=== PATIENT | female | born 1950 | race Caucasian/White ===

== ENCOUNTER 2017-04-09 14:58 | Inpatient (IN) | payer BC, MEDICARE ==
[~2017-04-09] VITALS: Ht 168.9 cm; Wt 94.9 kg
[2017-04-10] MEDS ORDERED: ALBUAER3 INH (09:17)
[2017-04-10] MEDS ORDERED: ESTR.3 PO (09:17)
[2017-04-10] MEDS ORDERED: LISI20TA3 PO (09:17)
[2017-04-10] MEDS ORDERED: AMBI10TA PO (09:17)
[2017-04-17] VITALS (9 sets, daily range): BP systolic 117–144; BP diastolic 69–83; PULSE 80–97; RESP 16–18; TEMP 97.5–98.5; O2SAT 97–98
[2017-04-17] MEDS ORDERED: PHENYLEPH/NS 1000 MCG/10 ML SYR IV ONE (12:00)
[2017-04-17] MEDS ORDERED: LACTATED RINGER'S 1000 ML INJ 2,000 ML IV ONE (12:00)
[2017-04-17] MEDS ORDERED: VECURONIUM BROMIDE 10 MG VIAL IV ONE (12:00)
[2017-04-17] MEDS ORDERED: PROPOFOL 200 MG/20 ML AMP IV ONE (12:00)
[2017-04-17] MEDS ORDERED: ONDANSETRON HCL 4 MG/2 ML VIAL IV PUSH ONE (12:00)
[2017-04-17] MEDS ORDERED: INSULIN HUMAN REGULAR 1,000 UNITS/10 ML VIAL SQ PRN (13:00)
[2017-04-17] MEDS ORDERED: METOPROLOL TARTRATE 25 MG TAB PO PRN (13:00)
[2017-04-17] MEDS ORDERED: LACTATED RINGER'S 1000 ML IV PRN (13:00)
[2017-04-17] MEDS ORDERED: SODIUM CHLORID 0.9% 500 ML IV PRN (13:00)
[2017-04-17] MEDS ORDERED: CHLORHEXIDINE GLUCONATE 2 % 1 PACK (2 CLOTHS) TOPICAL PRN (13:00)
[2017-04-17] MEDS ORDERED: POVIDONE IODINE 5% (ANTISEPSIS KIT) 4 APPLICATIONS EACH NARE PRN (13:00)
[2017-04-17] MEDS ORDERED: DEXT 5%-NACL 0.9% 1000 ML INJ 1,000 ML IV SCH (13:15)
[2017-04-17] MEDS ORDERED: METRONIDAZOLE 500 MG/100 ML ISONTONIC SOLN IV SCH (13:15)
[2017-04-17] MEDS ORDERED: ALVIMOPAN 12 MG CAPSULE - On Call PO SCH (13:30)
[2017-04-17] MEDS ORDERED: BUPIVACAINE HCL PF 0.5% 30 ML VIAL ONE (13:30)
[2017-04-17] MEDS: ALVIMOPAN 12 MG CAPSULE - Post-op dosing PO SCH (13:49)
[2017-04-17] MEDS: ceFAZolin 1,000 MG/NS 100 ML IV SCH ×4 (14:00→15:26)
[2017-04-17] MEDS ORDERED: MIDAZOLAM HCL 2 MG/2 ML VIAL ONE (14:48)
[2017-04-17] MEDS ORDERED: DEXAMETHASONE SOD PHOS 4 MG/ML VIAL ONE (14:48)
[2017-04-17] MEDS ORDERED: FAMOTIDINE 20 MG/2 ML VIAL ONE (14:48)
[2017-04-17] MEDS ORDERED: SUGAMMADEX SODIUM 200 MG/2 ML VIAL IV PUSH ONE ×2 (15:36)
[2017-04-17] MEDS ORDERED: ACETAMINOPHEN 1000 MG/100 ML VIAL IV ONE (15:37)
[2017-04-17] MEDS ORDERED: HYDROmorphone HCL PF 2 MG/ML VIAL ONE (15:37)
--- NOTE | 2017-04-17 15:38 | PD.OP ---
Operative Report Date of Surgery: Apr 17, 2017 Preoperative Diagnosis: Diverticulitis Postoperative Diagnosis: Same Procedure: Cystoscopy with bilateral ureteral catheter placement Anesthesia: VALENCIA Surgeon: Ajay Reyes Coater Slate(s): None Resident Surgeon: None Operation and Findings: 66-year-old female with history of diverticular disease elected to undergo colectomy by Dr. Bonds. Question right for bilateral ureteral catheter placement. Risk and benefits were discussed preoperatively and she was willing to proceed. The patient is brought to the operating room identify myself as Ramona Madison. She is placed in dorsal lithotomy position, prepped and draped in usual sterile fashion, received preprocedure antibiotics, general endotracheal tube anesthesia was administered. 22 Greek scope was inserted in the bladder chilel cystoscopy did not reveal any abnormalities. Left ureteral orifice was identified and a 5 Greek open catheter was inserted in the left ureteral orifice without difficulty. This was repeated on the right side without difficulty. 16 Greek Arnold was then inserted without difficulty and the catheter attached to the Arnold. She tolerated procedure well. Ajay Reyes DO Apr 17, 2017 15:38
[2017-04-17] MEDS: D5-LR + KCL 20 MEQ INJ 1,000 ML IV SCH ×3 (17:27→21:46)
[2017-04-17] MEDS ORDERED: NALOXONE HCL 0.4 MG/ML AMP IV PRN (17:30)
[2017-04-17] MEDS ORDERED: ACETAMINOPHEN 325 MG TAB PO PRN (17:30)
[2017-04-17] MEDS ORDERED: POTASSIUM CHLOR 40 MEQ PREMIX 100 ML IV PRN (17:30)
[2017-04-17] MEDS ORDERED: ENALAPRILAT 1.25 MG/ML VIAL IV PRN (17:30)
[2017-04-17] MEDS ORDERED: ACETAMINOPHEN/HYDROcodone 325 MG/5 MG TAB PO PRN (17:30)
[2017-04-17] MEDS ORDERED: POTASSIUM CHLOR 20 MEQ PREMIX 100 ML IV PRN (17:30)
[2017-04-17] MEDS ORDERED: Post-op Orders (for Pharmacy) MISC XX ONE (17:30)
[2017-04-17] MEDS ORDERED: BENZOCAINE 6 MG/MENTHOL 10 MG LOZENGE BUCCAL PRN (17:30)
[2017-04-17] MEDS ORDERED: SODIUM CHLORIDE 0.9% FLUSH 10 ML FLUSH IV FLUSH PRN (17:30)
[2017-04-17] MEDS ORDERED: *MEPERIDINE 25 MG INJ VIAL PERIprocedural Use ONLY ONE (17:45)
[2017-04-17] MEDS ORDERED: fentaNYL CITRATE 250 MCG/5 ML AMP ONE (17:51)
[2017-04-17] MEDS ORDERED: *morphine SULFATE 8 MG/ML PERIprocedure ONLY ONE ×2 (17:52→18:06)
[2017-04-17 18:13] LABS: AUTOMATED NEUTROPHIL # 12.8 TH/MM3 (1.8-7.7); BASOPHIL % 0.3 % (0.0-2.0); HEMATOCRIT 33.8 % (35.0-46.0); HEMO FLAGS DIFF FINAL; LYMPHOCYTE # 1.4 TH/MM3 (1.0-4.8); MEAN CELL VOLUME 88.6 FL (80.0-100.0); MEAN CORPUSCULAR HEMOGLOBIN 29.2 PG (27.0-34.0); MONO % 1.1 % (0.0-8.0); NEUT % 88.6 % (16.0-70.0); PLATELET COUNT 323 TH/MM3 (150-450); RED BLOOD COUNT 3.82 MIL/MM3 (4.00-5.30); RED CELL DISTRIBUTION WIDTH 12.6 % (11.6-17.2); WHITE BLOOD COUNT 14.4 TH/MM3 (4.0-11.0)
[2017-04-17] MEDS ORDERED: *HYDROmorphone PF 1 MG VIAL PERIprocedural Use ONLY ONE ×3 (18:17→18:43)
[2017-04-17] MEDS ORDERED: ALBUTEROL SULFATE 90 MCG/ACT HFA 18 GM INHALER INH PRN (18:30)
[2017-04-17 18:33] LABS: BICARBONATE 17.6 MEQ/L (21.0-32.0); POTASSIUM 3.8 MEQ/L (3.5-5.1)
[2017-04-17] MEDS: METOCLOPRAMIDE HCL 10 MG/2 ML VIAL IVS SCH ×2 (18:55→23:56)
[2017-04-17] MEDS ORDERED: DO NOT ADM ANY ANTICOAGULANT DRUGS PRN (19:00)
[2017-04-17] MEDS: MORPHINE SULFATE 30 MG/30 ML PCA IV SCH (19:01)
[2017-04-17] MEDS: SODIUM CHLORIDE 0.9% FLUSH 10 ML FLUSH IV FLUSH SCH (21:00)
[2017-04-17] MEDS: FUROSEMIDE 20 MG/2 ML VIAL IV SCH (21:42)
[2017-04-17] MEDS: metroNIDAZOLE 500 MG INJ 100 ML IV SCH (21:43)
[2017-04-17] MEDS: PCA - TOTAL MG MORPHINE DELIVERED PER SHIFT SCH (22:00)
[2017-04-17] MEDS: ceFAZolin 2 GM PREMIX 50 ML IV SCH (22:34)
[2017-04-18] VITALS (13 sets, daily range): BP systolic 111–131; BP diastolic 63–79; PULSE 76–90; RESP 16–18; TEMP 97.4–98.4; O2SAT 96–99
[2017-04-18] MEDS: ONDANSETRON HCL 4 MG/2 ML VIAL IV PRN (03:32)
[2017-04-18] MEDS: D5-LR + KCL 20 MEQ INJ 1,000 ML IV SCH ×3 (03:38→19:32)
[2017-04-18] MEDS: PCA - TOTAL MG MORPHINE DELIVERED PER SHIFT SCH ×3 (06:00→22:00)
[2017-04-18 06:01] LABS: AUTOMATED NEUTROPHIL # 8.9 TH/MM3 (1.8-7.7); BASOPHIL % 0.2 % (0.0-2.0); HEMATOCRIT 34.4 % (35.0-46.0); HEMO FLAGS DIFF FINAL; LYMPHOCYTE # 0.7 TH/MM3 (1.0-4.8); MEAN CORPUSCULAR HEMOGLOBIN 29.1 PG (27.0-34.0); MEAN CORPUSCULAR HGB CONC 32.3 % (32.0-36.0); MONO % 6.1 % (0.0-8.0); NEUT % 86.7 % (16.0-70.0); PLATELET COUNT 320 TH/MM3 (150-450); RED BLOOD COUNT 3.82 MIL/MM3 (4.00-5.30); RED CELL DISTRIBUTION WIDTH 12.6 % (11.6-17.2); WHITE BLOOD COUNT 10.3 TH/MM3 (4.0-11.0)
[2017-04-18] MEDS: METOCLOPRAMIDE HCL 10 MG/2 ML VIAL IVS SCH ×4 (06:10→23:04)
[2017-04-18] MEDS: metroNIDAZOLE 500 MG INJ 100 ML IV SCH ×2 (06:11→13:28)
[2017-04-18] MEDS: SODIUM CHLORIDE 0.9% FLUSH 10 ML FLUSH IV FLUSH SCH ×2 (06:11→19:39)
[2017-04-18 06:15] LABS: BICARBONATE 19.3 MEQ/L (21.0-32.0); POTASSIUM 4.6 MEQ/L (3.5-5.1)
[2017-04-18] MEDS: MORPHINE SULFATE 30 MG/30 ML PCA IV SCH ×2 (06:15→16:27)
[2017-04-18] MEDS: ceFAZolin 2 GM PREMIX 50 ML IV SCH ×2 (06:42→15:00)
[2017-04-18] MEDS: HYDROCHLOROTHIAZIDE 25 MG TAB PO SCH (08:18)
[2017-04-18] MEDS: ALVIMOPAN 12 MG CAPSULE - Post-op dosing PO SCH ×2 (08:19→19:40)
[2017-04-18] MEDS: ESTROGENS CONJUGATED 0.3 MG TAB PO SCH (08:19)
[2017-04-18] MEDS: LISINOPRIL 20 MG TAB PO SCH (08:19)
[2017-04-18] MEDS: PANTOPRAZOLE SODIUM 40 MG VIAL IVP SCH (08:19)
[2017-04-18] MEDS: FUROSEMIDE 20 MG/2 ML VIAL IV SCH ×2 (08:20→19:42)
--- NOTE | 2017-04-18 17:01 | HHI.PR ---
Subjective Remarks No N or V. Not too much pain. No BMs Objective Vital Signs Date Time Temp Pulse Resp B/P Pulse Ox O2 Delivery O2 Flow Rate FiO2 04/18/17 16:36 16 04/18/17 16:27 18 04/18/17 15:18 98.4 76 18 118/63 99 04/18/17 15:18 77 04/18/17 14:04 80 04/18/17 14:00 16 04/18/17 13:02 79 04/18/17 12:03 77 04/18/17 11:31 98.0 82 18 111/79 96 04/18/17 11:21 82 04/18/17 09:34 85 04/18/17 08:30 88 04/18/17 08:30 98.2 90 18 131/72 99 04/18/17 06:15 16 04/18/17 06:00 18 04/18/17 04:21 97.9 83 16 121/76 97 04/18/17 03:00 77 04/18/17 01:00 88 04/18/17 00:00 90 04/17/17 23:40 97.9 94 16 117/83 97 04/17/17 23:00 94 04/17/17 22:46 97.9 96 16 117/71 97 04/17/17 22:24 97.5 80 16 140/69 98 04/17/17 22:00 90 04/17/17 22:00 16 04/17/17 21:00 96 04/17/17 20:00 92 04/17/17 19:25 88 16 98 Nasal Cannula 3 04/17/17 19:15 97.5 80 16 140/69 98 Nasal Cannula 3 04/17/17 19:01 16 04/17/17 19:00 97 04/17/17 19:00 16 04/17/17 19:00 16 04/17/17 19:00 82 16 143/70 97 Nasal Cannula 3 04/17/17 18:45 85 15 141/74 97 Nasal Cannula 3 04/17/17 18:41 15 04/17/17 18:41 15 04/17/17 18:30 82 15 142/71 97 Nasal Cannula 3 04/17/17 18:15 79 15 147/78 96 Nasal Cannula 3 04/17/17 18:11 15 04/17/17 18:00 77 14 151/88 95 Nasal Cannula 3 04/17/17 17:57 15 04/17/17 17:45 78 14 148/83 95 Nasal Cannula 3 04/17/17 17:40 98.0 74 14 144/74 100 Nasal Cannula 4 I/O 04/17/17 04/17/17 04/17/17 04/18/17 04/18/17 04/18/17 07:00 15:00 23:00 07:00 15:00 23:00 Intake Total 3000 ml 2542 ml Output Total 440 ml 1240 ml Balance 2560 ml 1302 ml Intake Oral 120 ml IV Total 300 ml 2422 ml Other 2700 ml Output Urine Total 250 ml 1150 ml Drainage Total 90 ml 90 ml Estimated Blood Loss 100 ml Result Diagram: 04/18/17 0351 04/18/17 0351 Objective Remarks VS-S Abd: soft,dressing dry I&Os- OK. Remaining ureteral catheter removed. Labs- OK. Mild azotemia Assessment and Plan Assessment and Plan Stable POD#1 Transfer to . NMD tomorrow. Decrease IVs to 100/hr. Ambulate. Tim Flores MD Apr 18, 2017 17:01
[2017-04-18] MEDS ORDERED: ALVIMOPAN 12 MG CAPSULE PO SCH (21:00)
[2017-04-18] MEDS: ZOLPIDEM TARTRATE 5 MG TAB PO PRN (23:04)
[2017-04-19] VITALS: BP 142/70; PULSE 87; RESP 16; TEMP 99.1; O2SAT 96
[2017-04-19 03:46] VITALS: BP 113/56; PULSE 76; RESP 18; TEMP 96.7; O2SAT 96
[2017-04-19 05:20] LABS: AUTOMATED NEUTROPHIL # 7.2 TH/MM3 (1.8-7.7); BASOPHIL # 0.1 TH/MM3 (0-0.2); BASOPHIL % 0.5 % (0.0-2.0); EOSINOPHIL # 0.1 TH/MM3 (0-0.4); EOSINOPHIL % 0.6 % (0.0-4.0); HEMATOCRIT 26.5 % (35.0-46.0); HEMO FLAGS DIFF FINAL; LYMPH % 28.5 % (9.0-44.0); LYMPHOCYTE # 3.3 TH/MM3 (1.0-4.8); MEAN CELL VOLUME 88.1 FL (80.0-100.0); MEAN CORPUSCULAR HEMOGLOBIN 29.5 PG (27.0-34.0); MEAN CORPUSCULAR HGB CONC 33.4 % (32.0-36.0); MONO % 8.7 % (0.0-8.0); NEUT % 61.7 % (16.0-70.0); PLATELET COUNT 251 TH/MM3 (150-450); RED BLOOD COUNT 3.01 MIL/MM3 (4.00-5.30); RED CELL DISTRIBUTION WIDTH 12.5 % (11.6-17.2); WHITE BLOOD COUNT 11.6 TH/MM3 (4.0-11.0)
[2017-04-19 05:39] LABS: BICARBONATE 25.7 MEQ/L (21.0-32.0); POTASSIUM 4.1 MEQ/L (3.5-5.1)
[2017-04-19] MEDS: D5-LR + KCL 20 MEQ INJ 1,000 ML IV SCH (05:53)
[2017-04-19] MEDS: METOCLOPRAMIDE HCL 10 MG/2 ML VIAL IVS SCH ×3 (05:55→18:20)
[2017-04-19] MEDS: PCA - TOTAL MG MORPHINE DELIVERED PER SHIFT SCH ×3 (06:00→20:49)
[2017-04-19] MEDS: MORPHINE SULFATE 30 MG/30 ML PCA IV SCH ×2 (07:31→18:19)
[2017-04-19 08:00] VITALS: BP 111/53; PULSE 80; RESP 18; TEMP 97.8; O2SAT 99
[2017-04-19] MEDS: PANTOPRAZOLE SODIUM 40 MG VIAL IVP SCH (09:04)
[2017-04-19] MEDS: FUROSEMIDE 20 MG/2 ML VIAL IV SCH ×2 (09:05→20:49)
[2017-04-19] MEDS: SODIUM CHLORIDE 0.9% FLUSH 10 ML FLUSH IV FLUSH SCH ×2 (09:05→20:49)
[2017-04-19] MEDS: LISINOPRIL 20 MG TAB PO SCH (09:05)
[2017-04-19] MEDS: ALVIMOPAN 12 MG CAPSULE - Post-op dosing PO SCH ×2 (09:05→20:49)
[2017-04-19] MEDS: ESTROGENS CONJUGATED 0.3 MG TAB PO SCH (09:06)
[2017-04-19] MEDS: HYDROCHLOROTHIAZIDE 25 MG TAB PO SCH (09:06)
[2017-04-19] MEDS ORDERED: PNEUMOCOCCAL POLYVALENT INJ 25 MCG/0.5 ML SYR IM ONE (10:00)
[2017-04-19 12:00] VITALS: BP 95/52; PULSE 86; RESP 18; TEMP 98.1; O2SAT 95
--- NOTE | 2017-04-19 12:54 | HHI.PR ---
Subjective Remarks No N or V. No BMs Objective Vital Signs Date Time Temp Pulse Resp B/P Pulse Ox O2 Delivery O2 Flow Rate FiO2 04/19/17 12:00 98.1 86 18 95/52 95 04/19/17 08:00 97.8 80 18 111/53 99 04/19/17 07:36 19 04/19/17 07:31 18 04/19/17 06:00 18 04/19/17 03:46 96.7 76 18 113/56 96 04/19/17 00:00 99.1 87 16 142/70 96 04/18/17 22:00 17 04/18/17 20:00 97.4 81 16 112/66 97 04/18/17 16:27 18 04/18/17 15:18 98.4 76 18 118/63 99 04/18/17 15:18 77 04/18/17 14:04 80 04/18/17 14:00 16 04/18/17 13:02 79 I/O 04/18/17 04/18/17 04/18/17 04/19/17 04/19/17 04/19/17 06:59 14:59 22:59 06:59 14:59 22:59 Intake Total 2542 ml 4336 ml 779 ml Output Total 1240 ml 2000 ml 1170 ml Balance 1302 ml 2336 ml -391 ml Intake Oral 120 ml 900 ml IV Total 2422 ml 3436 ml 779 ml Output Urine Total 1150 ml 1950 ml 1150 ml Drainage Total 90 ml 50 ml 20 ml # Bowel Movements 0 Result Diagram: 04/19/1742704/19/17 0428 Objective Remarks VS-S Abd: soft,dressing removed by me, wound clean I&Os- OK. Labs- OK. Assessment and Plan Assessment and Plan Stable POD#2 D/C conner. SHANELL. Advance tomorrow Tim Flores MD Apr 19, 2017 12:54
[2017-04-19 16:00] VITALS: BP 116/82; PULSE 90; RESP 16; TEMP 98; O2SAT 96
[2017-04-19] MEDS: ONDANSETRON HCL 4 MG/2 ML VIAL IV PRN (18:15)
[2017-04-19 20:00] VITALS: BP 104/65; PULSE 108; RESP 19; TEMP 97.9; O2SAT 94
--- NOTE | 2017-04-19 20:25 | MP ---
cc: JOLANTA SEVILLA ANTONIO J. M.D. TOLLAND, JOHN T. M.D. DATE OF SURGERY: 04/17/2017. PREOPERATIVE DIAGNOSIS: Diverticulitis with colovaginal fistula. POSTOPERATIVE DIAGNOSIS: Diverticulitis with colovaginal fistula. OPERATIVE PROCEDURE PERFORMED: 1. Sigmoid colectomy with colorectal anastomosis, low anterior resection. 2. Omental flap SURGEON: Jolanta Flores M.D. H[employer]OURCES DISTRICT MANAGER: Claudio Baugh MD. ESTIMATED BLOOD LOSS: 50 cc. OPERATING TIME: One hour and forty-five minutes. OPERATIVE FINDINGS: This patient was having left lower quadrant pain dating back a couple of years. She noted air and stool coming from her vagina at times, mainly when her stools are loose and it leaks out of the vagina. She did have a colonoscopy done on February 24, [address] Phelan. A colonoscopy was done for left lower quadrant pain and the possibility of a colovaginal fistula. The colonoscope was able to be taken to the cecum. There were diverticula on the left side of the colon with some luminal narrowing. There were also chronic changes at 18 cm. No fistula was definitely seen but on my examination in the office of the vagina she did have a fistula at the apex of the vagina. At surgery, exploration of the abdominal cavity revealed that she had a short segment of previous diverticulitis which was stuck to the vaginal cuff and there appeared to be a fistula present to the vaginal cuff although it was quite small and no actual fistula tract in the vaginal cuff could be identified. The vaginal cuff was curetted clean where the colon was attached. A sigmoid colectomy was done with a colorectal anastomosis to the upper portion of the rectum. Exploration of the abdominal cavity revealed that the liver, the gallbladder, the remainder of the colon and the small bowel and stomach was all palpably normal. She has had a previous hysterectomy and no definite ovaries could be identified, although on the left side there was a small area that could have been an ovary. Dr. Ajay Reyes placed bilateral ureteral catheters for identification of the ureters. DESCRIPTION OF THE PROCEDURE IN DETAIL: The patient was placed on the table in the supine position. After adequate general endotracheal anesthesia, the abdomen and perineum and vagina were prepped and draped in the usual manner. A transverse infraumbilical skin incision was made and carried down through the subcutaneous tissue and the rectus muscles. Prior to making the incision, on inspecting the abdomen it was noted that she had a previous panniculectomy incision in her very lower suprapubic region. We did not use this incision because of its lowness and it would have necessitated raising a flap which has a higher incidence of superficial wound infection after the colon surgery. Therefore, the upper a transverse incision was done below the umbilicus. The peritoneal cavity was entered with the above-mentioned findings and our attention was turned the sigmoid colon which was mobilized along its peritoneal reflection up to but not including the splenic flexure. The area of the sigmoid colon that was looped and stuck to the apex of the vagina was with electrocautery and the rectum was straight. The superior hemorrhoidal vessels were doubly clamped, cut and doubly ligated with #0 Vicryl ligatures and the inferior mesenteric vein was also clamped, cut and ligated. The lateral pelvic peritoneum was incised bilaterally and the retrorectal space was dissected down towards the pelvic floor. Dissection was taken down laterally as well in the avascular planes. The anterior cul-de-sac was not entered. The mesorectum was divided with electrocautery and the mesorectum was clamped, cut and ligated as well. The upper rectum was chosen as a point of division below all diverticular disease, although the apex of this was somewhat narrow and therefore dissection was taken down more distally in the upper rectum to a larger portion of the upper rectum. Once this was done, the pursestring device was again placed on the rectum before division. Next, a point was chosen in the upper sigmoid and descending colon region for anastomosis and the medial colon was clamped, cut and ligated and the pursestring stapling device was placed and the colon was divided and then opened on the back table looking for the fistula site and it was marked with a suture. Next, the anvil of the Ethicon 33 EEA stapling instrument was placed in the proximal bowel and the pursestring was tied. Dr. Baugh then went below with the 33 EEA instrument and it was brought up through the rectum and the distal pursestring was tied and the instrument was connected, closed and fired creating the circular anastomosis. Dr. Baugh then did proctosigmoidoscopy examination insufflating air into the rectum with saline solution in the pelvis and no air leaks were identified. Inspection of the anastomosis showed that it had no tension and it had good blood supply and was intact circumferentially. The pelvis was irrigated thoroughly with two more liters of saline solution and aspirated dry. Hemostasis was maintained throughout with electrocautery and ligature and the remaining mesorectum was surrounding the anastomosis but we decided to split the omentum down its middle portion since it was a generous omentum up to the transverse colon and then mobilizing it from the transverse colon in the lesser sac on the left side and lying the omentum down the left colic gutter into the pelvis totally sealing off the area of the anastomosis from the vaginal cuff region. Once this was done, the bowels were placed in the abdominal cavity in an cement finisher apprentice manner. A flat Isaiah drain was placed in the retrorectal space and brought out through a separate stab wound and then the incision was closed in layers using double-stranded #1 PDS for the posterior rectus sheath irrigating that muscle layer with a liter of saline solution and closing anterior rectus sheath with a double-stranded #1 PDS as well. That subcutaneous tissue was then irrigated with a liter of saline solution. The skin was closed with running 3-0 Vicryl subcuticular sutures and dressings were applied. Sponge, needle and instrument counts were reported as correct. The estimated blood loss was 50 mL. The patient tolerated the procedure well and left the operating room in good condition. MD PRAKASH Newsome/MER /5:34 PM /8:07 PM
[2017-04-19] MEDS: ZOLPIDEM TARTRATE 5 MG TAB PO PRN (20:49)
[2017-04-20] VITALS: BP 131/60; PULSE 86; RESP 18; TEMP 96.9; O2SAT 96
[2017-04-20] MEDS: METOCLOPRAMIDE HCL 10 MG/2 ML VIAL IVS SCH ×5 (00:18→20:05)
[2017-04-20 04:00] VITALS: BP 135/71; PULSE 113; RESP 20; TEMP 97.4; O2SAT 98
[2017-04-20] MEDS: PCA - TOTAL MG MORPHINE DELIVERED PER SHIFT SCH (06:00)
[2017-04-20] MEDS: ALVIMOPAN 12 MG CAPSULE - Post-op dosing PO SCH ×2 (07:54→21:03)
[2017-04-20] MEDS: LISINOPRIL 20 MG TAB PO SCH (07:54)
[2017-04-20] MEDS: ACETAMINOPHEN/HYDROcodone 325 MG/5 MG TAB PO PRN ×4 (07:54→21:07)
[2017-04-20] MEDS: HYDROCHLOROTHIAZIDE 25 MG TAB PO SCH (07:54)
[2017-04-20] MEDS: ESTROGENS CONJUGATED 0.3 MG TAB PO SCH (07:54)
[2017-04-20] MEDS: FUROSEMIDE 20 MG/2 ML VIAL IV SCH (07:55)
[2017-04-20] MEDS: PANTOPRAZOLE SODIUM 40 MG VIAL IVP SCH (07:55)
[2017-04-20] MEDS: SODIUM CHLORIDE 0.9% FLUSH 10 ML FLUSH IV FLUSH SCH ×2 (07:55→20:04)
[2017-04-20 08:00] VITALS: BP 126/60; PULSE 91; RESP 16; TEMP 97.3; O2SAT 95
[2017-04-20] MEDS: D5-LR + KCL 20 MEQ INJ 1,000 ML IV SCH (09:27)
--- NOTE | 2017-04-20 10:29 | HHI.PR ---
Subjective Remarks No N or V. No BMs. Tolerating PO Objective Vital Signs Date Time Temp Pulse Resp B/P Pulse Ox O2 Delivery O2 Flow Rate FiO2 04/20/17 08:54 18 04/20/17 08:00 97.3 91 16 126/60 95 04/20/17 06:00 20 04/20/17 04:00 97.4 113 20 135/71 98 04/20/17 00:00 96.9 86 18 131/60 96 04/19/17 20:49 20 04/19/17 20:00 97.9 108 19 104/65 94 04/19/17 18:19 18 04/19/17 16:00 98.0 90 16 116/82 96 04/19/17 14:00 19 04/19/17 12:00 98.1 86 18 95/52 95 I/O 04/19/17 04/19/17 04/19/17 04/20/17 04/20/17 04/20/17 07:00 15:00 23:00 07:00 15:00 23:00 Intake Total 779 ml 1520 ml 563 ml 403 ml Output Total 1170 ml 1260 ml 500 ml 380 ml Balance -391 ml 260 ml 63 ml 23 ml Intake Oral 800 ml 360 ml 120 ml IV Total 779 ml 720 ml 203 ml 283 ml Output Urine Total 1150 ml 1250 ml 500 ml 350 ml Drainage Total 20 ml 10 ml 30 ml # Bowel Movements 0 0 Result Diagram: 04/19/17 0428 04/19/17 0428 Objective Remarks VS-S Abd: soft, wound clean I&Os- OK. Labs- Recheck CBC and Lytes Assessment and Plan Assessment and Plan Stable POD#3 Reg diet. Re-Check labs Tim Flores MD Apr 20, 2017 10:28
[2017-04-20 12:00] VITALS: BP 112/59; PULSE 74; RESP 16; TEMP 97.5; O2SAT 98
[2017-04-20 16:00] VITALS: BP 103/58; PULSE 77; RESP 16; TEMP 97.5; O2SAT 98
[2017-04-20 17:06] LABS: AUTOMATED NEUTROPHIL # 5.7 TH/MM3 (1.8-7.7); BASOPHIL # 0.1 TH/MM3 (0-0.2); BASOPHIL % 0.6 % (0.0-2.0); EOSINOPHIL # 0.3 TH/MM3 (0-0.4); EOSINOPHIL % 2.7 % (0.0-4.0); HEMATOCRIT 25.6 % (35.0-46.0); HEMO FLAGS DIFF FINAL; LYMPHOCYTE # 3.3 TH/MM3 (1.0-4.8); MEAN CELL VOLUME 88.9 FL (80.0-100.0); MEAN CORPUSCULAR HEMOGLOBIN 30.2 PG (27.0-34.0); MONO % 7.6 % (0.0-8.0); NEUT % 56.1 % (16.0-70.0); PLATELET COUNT 241 TH/MM3 (150-450); RED BLOOD COUNT 2.87 MIL/MM3 (4.00-5.30); RED CELL DISTRIBUTION WIDTH 12.7 % (11.6-17.2); WHITE BLOOD COUNT 10.1 TH/MM3 (4.0-11.0)
[2017-04-20 17:20] LABS: BICARBONATE 28.8 MEQ/L (21.0-32.0); POTASSIUM 3.5 MEQ/L (3.5-5.1)
[2017-04-20 20:00] VITALS: BP 133/61; PULSE 93; RESP 20; TEMP 97.1; O2SAT 98
[2017-04-20] MEDS: ZOLPIDEM TARTRATE 5 MG TAB PO PRN (21:03)
[2017-04-21] VITALS: BP 134/63; PULSE 80; RESP 20; TEMP 98.2; O2SAT 99
[2017-04-21] MEDS: ACETAMINOPHEN/HYDROcodone 325 MG/5 MG TAB PO PRN ×3 (04:36→12:30)
[2017-04-21 08:00] VITALS: BP 126/61; PULSE 91; RESP 18; TEMP 95.7; O2SAT 95
[2017-04-21] MEDS: ONDANSETRON HCL 4 MG/2 ML VIAL IV PRN (08:02)
[2017-04-21] MEDS: ALVIMOPAN 12 MG CAPSULE - Post-op dosing PO SCH (08:03)
[2017-04-21] MEDS: ESTROGENS CONJUGATED 0.3 MG TAB PO SCH (08:03)
[2017-04-21] MEDS: LISINOPRIL 20 MG TAB PO SCH (08:03)
[2017-04-21] MEDS: PANTOPRAZOLE SODIUM 40 MG VIAL IVP SCH ×2 (08:03→12:30)
[2017-04-21] MEDS: METOCLOPRAMIDE HCL 10 MG/2 ML VIAL IVS SCH (08:03)
[2017-04-21] MEDS: HYDROCHLOROTHIAZIDE 25 MG TAB PO SCH (08:04)
--- NOTE | 2017-04-21 10:06 | HHI.DCPOC ---
Discharge Care Plan Diagnosis: (1) Status post partial resection of colon Your Health Problems Are: Incision/Drains Appetite Changes Swelling Irregular Bowel Function Exercise Tolerance Goals to Promote Your Health * To prevent worsening of your condition and complications * To maintain your health at the optimal level Directions to Meet Your Goals Take your medications as prescribed Follow your dietary instruction Follow activity as directed Keep your appointments as scheduled Take your immunizations and boosters as scheduled If your symptoms worsen call your PCP, if no PCP go to Urgent Care Center or Emergency Room Smoking is Dangerous to Your Health. Avoid second hand smoke Call the 24-hour hour crisis hotline for domestic abuse at Tim Flores MD Apr 21, 2017 10:06
[2017-04-21] MEDS ORDERED: HYDR-3533 PO (11:14)
== END 2017-04-21 12:38 | disposition home or self-care (01) | DRG 330 ==
LOC: HSDI 04-17 12:32 → HCIN 04-17 19:30 → N07A 04-18 18:43
PROVIDERS: ADMIT Colon & Rectal Surgery; ATTEND Colon & Rectal Surgery
PROC: 0DBP0ZZ Excision of Rectum, Open Approach (ICD-10-PCS; 2017-04-17)
PROC: 0DJD8ZZ Inspection of Lower Intestinal Tract, Via Natural or Artificial Opening Endoscopic (ICD-10-PCS; 2017-04-17)
PROC: 0T788DZ Dilation of Bilateral Ureters with Intraluminal Device, Via Natural or Artificial Opening Endoscopic (ICD-10-PCS; 2017-04-17)
PROC: 0TJB8ZZ Inspection of Bladder, Via Natural or Artificial Opening Endoscopic (ICD-10-PCS; 2017-04-17)
PROC: 0DBN0ZZ Excision of Sigmoid Colon, Open Approach (ICD-10-PCS; principal; 2017-04-17 14:52)
PROC: 0UBG0ZZ Excision of Vagina, Open Approach (ICD-10-PCS; 2017-04-17 14:52)
DX: K57.92 Diverticulitis of intestine, part unspecified, without perforation or abscess without bleeding (principal); N82.3 Fistula of vagina to large intestine; Z23 Encounter for immunization
CPT/HCPCS: 76937; 80048; 85025; 86850; 86900; 86901; 88307; 90732; 94150; C9113; J0131; J0690; J1100; J1170; J1940; J2175; J2250; J2270; J2370; J2405; J2765; J3010; J3480; J7120

== ENCOUNTER → 2017-04-10 | Outpatient (CLI) | payer BC, MEDICARE ==
[~2017-04-10] MED LIST: ALBUAER3 INH; AMBI10TA PO; ESTR.3 PO; HYDR-3533 PO; LISI20TA3 PO
[2017-04-10 09:34] LABS: AUTOMATED NEUTROPHIL # 4.1 TH/MM3 (1.8-7.7); BASOPHIL # 0.1 TH/MM3 (0-0.2); BASOPHIL % 0.8 % (0.0-2.0); EOSINOPHIL # 0.2 TH/MM3 (0-0.4); HEMO FLAGS DIFF FINAL; LYMPH % 39.5 % (9.0-44.0); LYMPHOCYTE # 3.2 TH/MM3 (1.0-4.8); MEAN CELL VOLUME 87.6 FL (80.0-100.0); MEAN CORPUSCULAR HGB CONC 33.1 % (32.0-36.0); MONO % 5.6 % (0.0-8.0); NEUT % 51.1 % (16.0-70.0); PLATELET COUNT 322 TH/MM3 (150-450); RED BLOOD COUNT 3.99 MIL/MM3 (4.00-5.30); RED CELL DISTRIBUTION WIDTH 12.2 % (11.6-17.2)
[2017-04-10 09:41] LABS: APTT (PATIENT) 25.9 SEC (24.3-30.1); INTERNATIONAL NORMALIZED RATIO 0.9 RATIO; PROTHROMBIN TIME - PATIENT 9.8 SEC (9.8-11.6)
[2017-04-10 10:04] LABS: ALT (GPT) 15 U/L (10-53); ANION GAP 9 MEQ/L (5-15); AST (GOT) 17 U/L (15-37); BICARBONATE 24.8 MEQ/L (21.0-32.0); BLOOD UREA NITROGEN 22 MG/DL (7-18); CHLORIDE 106 MEQ/L (98-107); GLOMERULAR FILTRATION RATE 45 ML/MIN (>89); GLUCOSE,FASTING 91 MG/DL (74-99); POTASSIUM 4.1 MEQ/L (3.5-5.1); SODIUM (NA) 140 MEQ/L (136-145)
[2017-04-10 10:07] LABS: ALKALINE PHOSPHATASE 66 U/L (45-117); TOTAL BILIRUBIN ADULT 0.3 MG/DL (0.2-1.0)
[2017-04-10 10:20] LABS: BACTERIA, URINE OCC /hpf; BLOOD, URINE NEG (NEG); COMMENT (UR) CULT NOT INDICATED; CULTURE IF INDICATED CULT NOT INDICATED; GLUCOSE,URINE NEG (NEG); HYALINE CAST, URINE 1 /lpf (RARE); KETONE, URINE NEG (NEG); MUCUS URINE FEW /lpf (OCC); NITRITE,URINE NEG (NEG); PH, URINE 5.5 (5.0-8.5); SQUAMOUS EPITHELIAL CELL URINE 3 /hpf (0-5); URINE COLOR YELLOW (YELLW/STRAW)
--- NOTE | 2017-04-10 10:20 | RADRPT ---
EXAM DATE/TIME: 04/10/2017 09:58 [place] COMPARISON: No previous studies available for comparison. INDICATIONS : Evaluate for pneumonia, pneumothroax or communicable disease. MEDICAL HISTORY : Hypertension. SURGICAL HISTORY : None. ENCOUNTER: Initial ACUITY: 1 day PAIN SCORE: 0/10 LOCATION: chest FINDINGS: PA and lateral views of the chest demonstrate the lungs to be symmetrically aerated without evidence of mass, infiltrate or effusion. The cardiomediastinal contours are unremarkable. Osseous structure s are intact. CONCLUSION: 1. No acute cardiopulmonary disease. Sam Strong MD on April 10, 2017 at 10:18 Board Certified Radiologist. This report was verified electronically.
--- NOTE | 2017-04-10 19:13 | EKG ---
Date Performed: 04/10/2017 Time Performed: 09:10:13 PTAGE: 66 years EKG: Sinus rhythm BORDERLINE LEFT AXIS DEVIATION LOW QRS VOLTAGE IN PRECORDIAL LEADS PATTERN CONSISTENT WITH PULMONARY DISEASE ABNORMAL ECG PREVIOUS TRACING 06/07/2002 @13.08.56 Compared to prior tracing no significant change DOCTOR: Ronit Lieberman Interpretating Date/Time 04/10/2017 19:12:22
== END ==
LOC: CPRE 08:47
PROVIDERS: ATTEND Colon & Rectal Surgery
DX: Z01.812 Encounter for preprocedural laboratory examination (principal); Z01.810 Encounter for preprocedural cardiovascular examination; Z01.811 Encounter for preprocedural respiratory examination; K57.32 Diverticulitis of large intestine without perforation or abscess without bleeding; N82.4 Other female intestinal-genital tract fistulae; R94.31 Abnormal electrocardiogram [ECG] [EKG]
CPT/HCPCS: 36415; 71020; 80053; 81001; 85025; 85610; 85730; 93005